=== PATIENT | male | born 1975 | race African-American/Black ===

== ENCOUNTER 2017-09-04 07:36 | Emergency (ER) | payer OTHER ==
[2017-09-04] MEDS ORDERED: KETOROLAC 60 MG/2 ML VIAL IVP STA (07:54)
--- NOTE | 2017-09-04 07:57 | ED Physician Documentation ---
History of Present Illness - Stated complaint Stated Complaint: LEFT CHEST PAIN - Chief complaint Chief Complaint: Cardiac - Additonal information Additional information: hx from pt 41 healthy AD [place] male to ER with CP onset last night > 8 hr ago pain is sharp l sided 5/10 baseline, 8/10 with inspiration + SOA no fever cough no leg swelling no recent travel no injury/wt lifting etc no fhx CAD no knonw HTN lipids DM, chews but does not smoke Review of Systems Constitutional: denies: Fever, Chills Cardiac: reports: Chest pain / pressure Respiratory: reports: Dyspnea GI: denies: Abdominal Pain, Nausea, Vomiting Musculoskeletal: denies: Extremity pain, Extremity swelling Endocrine: denies: Easy bruising / bleeding Immunocompromised: denies: Immunocompromised PD PAST MEDICAL HISTORY - Present Medications Home Medications: Ambulatory Orders Medication Instructions Recorded Confirmed Indomethacin [Indocin] 50 mg PO BIDWM PRN #20 capsule 09/04/17 - Allergies Allergies/Adverse Reactions: Allergies Allergy/AdvReac Type Severity Reaction Status Date / Time No Known Drug Allergies Allergy Verified 09/04/17 07:50 PD ED PE NORMAL - Vitals Vital signs reviewed: Yes - General General: Alert and oriented X 3 - HEENT HEENT: PERRL - Neck Neck: Supple, no meningeal sign - Cardiac Cardiac: RRR, No murmur - Respiratory Respiratory: No respiratory distress, Clear bilaterally - Abdomen Abdomen: Soft, Non tender - Derm Derm: Normal color - Extremities Extremities: No edema, No calf tenderness / cord - Neuro Neuro: Alert and oriented X 3 Results - Vitals Vitals: Vital Signs - 24 hr 09/04/17 09/04/17 09/04/17 07:43 08:25 09:10 Temperature 36.7 C Heart Rate 77 84 71 Respiratory 18 14 16 Rate Blood Pressure 169/111 H 143/77 H 147/90 H O2 Saturation 99 97 97 Oxygen O2 Source Room air - EKG (time done) 0747 Rate: Rate (enter#) (74) Rhythm: NSR [place]: Normal Intervals: Normal CT QRS: Normal Ischemia: Non specific changes (flat T waves inferior) - Labs Labs: Laboratory Tests 09/04/17 09/04/17 09/04/17 08:03 08:03 08:03 WBC 8.9 RBC 4.68 L Hgb 15.1 Hct 42.8 MCV 91.4 MCH 32.3 H MCHC 35.3 RDW 11.8 L Plt Count 203 MPV 7.0 L Neut # 6.1 Lymph # 2.0 [place] # 0.7 Eos # 0.1 Baso # 0.0 Absolute Nucleated RBC 0.00 Nucleated RBC % 0.0 D-Dimer Sodium 136 Potassium 4.0 Chloride 101 Carbon Dioxide 23 Anion Gap 12.0 BUN 16 Creatinine 1.2 Estimated GFR (MDRD) 82 L Glucose 101 H Calcium 9.2 Total Bilirubin 0.5 AST 18 ALT 21 Alkaline Phosphatase 64 Troponin I < 0.04 Total Protein 8.2 Albumin 4.4 Globulin 3.8 Albumin/Globulin Ratio 1.2 Lipase 15 L 09/04/17 08:03 WBC RBC Hgb Hct MCV MCH MCHC RDW Plt Count MPV Neut # Lymph # [place] # Eos # Baso # Absolute Nucleated RBC Nucleated RBC % D-Dimer 212.8 Sodium Potassium Chloride Carbon Dioxide Anion Gap BUN Creatinine Estimated GFR (MDRD) Glucose Calcium Total Bilirubin AST ALT Alkaline Phosphatase Troponin I Total Protein Albumin Globulin Albumin/Globulin Ratio Lipase - Rads (name of study) CXR Radiology: See rad report (mild bibasilar atelectasis) PD MEDICAL DECISION MAKING - ED course ED course: PERC zero and nl d dimer make PE extremely unlikely non specific EKG and neg trop after > 8 hr of sx essentially rules out ACS CXR no pna, pneumo, nl mediastinum feel have considered and addressed ACS, PE dissecton/aneurysm, infection, pneumo and results are reassuring will reassure and dc with dx pleurisy to fup PMD at [facility] for a recheck and outpt echo if sx persist BP better s intervention Departure - Departure Disposition: 01 Home, Self Care Clinical Impression: Pleurisy Condition: Good Instructions: ED Chest Pain Atypical Unkn Cause, ED Chest Pain Pleurisy Follow-Up: [facility] Laurie Vaughn [Provider Group] Prescriptions: Indomethacin [Indocin] 50 mg PO BIDWM PRN #20 capsule PRN Reason: Pain Comments: All of your tests came back reassuring. Based on the history, exam, EKG, xray and blood work it does not seem you are having a heart attack, a blood clot in your lungs, a torn or enlarged aorta, a collapsed lung, or a lung infection. The pain is likely due to pleurisy which is inflammation of the lining of your lungs and chest cavity. This usually resolves on its own and the pain is treated with NSAIDS (like motrin, naproxen, or indocin) in the mean time. Off work today Please follow up with [facility] medical tomorrow for a recheck and duty status If the symptoms persist more than a few days they might want to also get an ultrasound of your heart called an echocardiogram Forms: Activity restrictions Discharge Date/Time: 09/04/17 09:13
[2017-09-04 08:10] LABS: BASOPHILS % (AUTO) 0.5 %; EOSINOPHILS # (AUTO) 0.1 10^3/uL (0.0-0.7); EOSINOPHILS % (AUTO) 1.1 %; HCT - HEMATOCRIT 42.8 % (42.0-52.0); HGB - HEMOGLOBIN 15.1 g/dL (14.0-18.0); MEAN CORPUSCULAR HEMOGLOBIN 32.3 pg (27.0-31.0); MEAN CORPUSCULAR HGB CONC 35.3 g/dL (32.0-36.0); MEAN CORPUSCULAR VOLUME 91.4 fL (80.0-94.0); MONOCYTES # (AUTO) 0.7 10^3/uL (0.0-1.0); MONOCYTES % (AUTO) 7.5 %; NEUTROPHILS # (AUTO) 6.1 10^3/uL (1.5-6.6); NEUTROPHILS % (AUTO) 68.9 %; RED BLOOD COUNT 4.68 10^6/uL (4.70-6.10); RED CELL DISTRIBUTION WIDTH 11.8 % (12.0-15.0); UNCORRECTED WHITE BLOOD COUNT 8.9 x10^3/uL; WHITE BLOOD COUNT 8.9 x10^3/uL (4.8-10.8)
[2017-09-04 08:23] LABS: ALBUMIN/GLOBULIN RATIO 1.2 (1.0-2.2); BILIRUBIN,TOTAL 0.5 mg/dL (0.2-1.0); CALCIUM 9.2 mg/dL (8.5-10.3); CREATININE 1.2 mg/dL (0.6-1.2); TOTAL PROTEIN 8.2 g/dL (6.7-8.2)
--- NOTE | 2017-09-04 08:36 | XRAY Preliminary Report ---
Exam: XR CHEST 2 VIEW PA/LAT IMPRESSION: Mild bibasilar atelectasis [facility] SITE ID: [id number]
--- NOTE | 2017-09-04 08:39 | XRAY Report ---
EXAM: CHEST RADIOGRAPHY EXAM DATE: 09/04/2017 08:27 AM. CLINICAL HISTORY: Cp soa. COMPARISON: None. TECHNIQUE: 2 views. FINDINGS: Lungs/Pleura: Mild bibasilar atelectasis No focal opacities evident. No pleural effusion. No pneumoth orax. Decrease volumes. Mediastinum: Heart and mediastinal contours are unremarkable. Other: None. IMPRESSION: Mild bibasilar atelectasis [facility] Referring Provider Line: [phone] SITE ID: [id number]
[2017-09-04 09:12] VITALS: BP 147/90
== END 2017-09-04 09:13 | disposition home or self-care (01) ==
LOC: ED 07:36
DX: R09.1 Pleurisy (principal); F17.220 Nicotine dependence, chewing tobacco, uncomplicated
CPT/HCPCS: 36415; 71020; 80053; 83690; 84484; 85025; 85379; 93005; 96374; 99283; 99284